=== PATIENT | female | born 1985 | race Caucasian/White ===

== ENCOUNTER 2019-01-30 06:00 | Day surgery (SDC) | payer OTHER | END 2019-01-30 19:00 | disposition home or self-care (01) | LOC: CIR.AMB 06:00 | DX: N84.0 Polyp of corpus uteri (principal) ==

== ENCOUNTER 2023-02-19 12:55 | Inpatient (IN) | payer OTHER ==
[~2023-02-19] VITALS: Ht 172.7 cm; Wt 88.9 kg
[2023-02-25] MEDS ORDERED: PRENATABS RX T1 EACH PO (09:59)
[2023-02-25] MEDS ORDERED: IRON240 MG PO (10:00)
[2023-02-25] MEDS ORDERED: VITAL-D RX TAB1 EACH PO (10:01)
[2023-02-27] MEDS ORDERED: PERCOCET 5-3251 EACH PO (08:55)
[2023-02-27] MEDS ORDERED: SURFAK240 M1 PO (08:55)
== END 2023-02-28 11:45 | disposition home or self-care (01) | DRG 788 ==
LOC: LDR 02-25 08:09 → OB/GYN 02-25 08:09
PROVIDERS: ADMIT Specialist; ATTEND Specialist
PROC: 4A1HXCZ Monitoring of Products of Conception, Cardiac Rate, External Approach (ICD-10-PCS; 2023-02-25)
PROC: 10D00Z1 Extraction of Products of Conception, Low, Open Approach (ICD-10-PCS; principal; 2023-02-25 12:30)
DX: O34.211 Maternal care for low transverse scar from previous cesarean delivery (principal); Z3A.39 39 weeks gestation of pregnancy; Z37.0 Single live birth; Z20.822 Contact with and (suspected) exposure to COVID-19